=== PATIENT | male | born 1965 | race Caucasian/White ===

== ENCOUNTER 2022-07-24 18:19 | Emergency (ER) | payer MEDICAID ==
[~2022-07-24] VITALS: Ht 180.3 cm; Wt 84.1 kg
[~2022-07-24 18:19] MED LIST: CLIN-97 PO; HYDR-3565 PO; NO HOME MEDS; QUET400T PO; QUET50TA PO
[2022-07-24] MEDS ORDERED: OLANZapine 2.5MG tablet PO STA ×2 (18:54→21:46)
[2022-07-24] MEDS ORDERED: quetiapine 100mg tablet PO STA (19:03)
[2022-07-24 19:07] LABS: BASOPHILS # (AUTO) 0.1 X10'3 (0-0.2); BASOPHILS % (AUTO) 0.8 % (0-1); EOSINOPHILS # (AUTO) 0.1 X10'3 (0-0.9); EOSINOPHILS % (AUTO) 0.8 % (0-6); HEMATOCRIT 49.1 % (42.0-52.0); HEMOGLOBIN 16.2 g/dl (14.0-17.9); LYMPHOCYTES % (AUTO) 9.1 % (21-51); MEAN CORPUSCULAR HGB CONC 33.1 g/dL (33.0-36.5); MEAN CORPUSCULAR VOLUME 90.6 FL (78-98); MEAN PLATELET VOLUME 9.3 FL (7.4-10.4); MONOCYTES # (AUTO) 0.9 X10'3 (0-0.9); MONOCYTES % (AUTO) 8.6 % (2-12); NEUTROPHILS # (AUTO) 8.7 X10'3 (1.8-7.7); NEUTROPHILS % (AUTO) 80.7 % (42-75); PLATELET COUNT 229 X10'3 (140-440); RED BLOOD COUNT 5.42 X10'6 (4.70-6.10); RED CELL DISTRIBUTION WIDTH 13.2 % (11.5-14.5); WHITE BLOOD COUNT 10.7 X10'3 (4.5-11.0)
[2022-07-24 19:21] LABS: ALANINE AMINOTRANSFERASE 27 U/L (12-78); ALBUMIN 4.2 G/DL (3.4-5.0); ALBUMIN/GLOBULIN RATIO 1.2 (1.1-1.5); ALKALINE PHOSPHATASE 74 IU/L (46-116); ANION GAP 16 (8-16); ASPARTATE AMINO TRANSFERASE 20 U/L (10-37); BILIRUBIN,TOTAL 1.2 MG/DL (0.1-1.0); BLOOD UREA NITROGEN 17 MG/DL (7-18); BUN/CREATININE RATIO 14.7 (5.4-32.0); CHLORIDE 100 MMOL/L (99-107); CREATININE 1.16 MG/DL (0.60-1.10); GLUCOSE 112 MG/DL (70-104); POTASSIUM 4.2 MMOL/L (3.5-5.1); SODIUM 138 MMOL/L (135-145); TOTAL CARBON DIOXIDE 22.1 MMOL/L (24-32); TOTAL PROTEIN 7.8 G/DL (6.4-8.2); eGFR 65 ML/MIN
[2022-07-24 19:39] LABS: ETHANOL < 0.010 GM/DL (0.0-0.010)
[2022-07-24] MEDS ORDERED: LOVA20TA2 PO (19:56)
[2022-07-24] MEDS ORDERED: QUET-1 PO (19:56)
--- NOTE | 2022-07-24 19:56 | NUR ---
PT LAYING IN BED RESTING WITH EYES CLOSED
[2022-07-24 20:02] VITALS: BP 135/85
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
[2022-07-24] MEDS ORDERED: hydrOXYzine 25 MG tablet PO ONE (20:50)
[2022-07-24] MEDS ORDERED: LORazepam 2 mg/ml vial IM ONE (21:15)
--- NOTE | 2022-07-24 23:30 | NUR ---
pt laying on bed with eyes closed. breathing even and non labored.
--- NOTE | 2022-07-25 03:33 | NUR ---
pt laying on left side with eyes closed. breathing even and non labored.
--- NOTE | 2022-07-25 06:45 | NUR ---
Assumed care of patient. Pt ambulated independently from main ED to OF bed #25. Pt appears a little restless. Noted patient talking to himself, pt was calm during transfer. Pt was given a warm blanket. Pt states "don't believe what my brother says, he just tries and picks a fight."
[2022-07-25] MEDS ORDERED: atorvastatin 10mg tablet PO SCH (08:00)
[2022-07-25] MEDS ORDERED: QUET-28 PO (08:48)
[2022-07-25] MEDS ORDERED: NAPR-996 PO (08:48)
--- NOTE | 2022-07-25 09:00 | NUR ---
Pt resting comfortably rr even and unlabored.
[2022-07-25 09:09] LABS: CLARITY,URINE CLOUDY (Clear); COLOR,URINE YELLOW (Yellow); GLUCOSE, URINE NEGATIVE (Neg); KETONES,URINE >=80 mg/dl (Neg); LEUKOCYTE ESTERASE ,URINE NEGATIVE (Neg); NITRITES, URINE NEGATIVE (Neg); OCCULT BLOOD,URINE NEGATIVE (Neg); PROTEIN,URINE TRACE mg/dl (Neg); UROBILINOGEN,URINE 0.2 E.U/dL (0.2-1.0)
[2022-07-25 09:17] LABS: UA COLLECTION TYPE NON-SPECIFIED; URINE AMPHETAMINE SCREEN NEGATIVE (Neg); URINE BARBITUATE SCREEN NEGATIVE (Neg); URINE BENZODIAZEPINES SCREEN NEGATIVE (Neg); URINE CANNABINOID SCREEN POSITIVE (Neg); URINE COCAINE SCREEN NEGATIVE (Neg); URINE METHADONE SCREEN NEGATIVE (Neg); URINE OPIATE SCREEN NEGATIVE (Neg); URINE PHENCYCLIDINE SCREEN NEGATIVE (Neg)
[2022-07-25 09:20] LABS: WBC,URINE 0-4 /HPF (0-4)
[2022-07-25 09:21] LABS: BACTERIA,URINE FEW /HPF (Neg); MUCUS STRANDS MANY /LPF (Neg); RBC,URINE 0-2 /HPF (0-2); SQUAMOUS EPITHELIAL CELL,UR FEW /LPF (FEW)
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
[2022-07-25] MEDS: OLANZapine 2.5MG tablet PO SCH ×2 (09:54→20:01)
[2022-07-25] MEDS ORDERED: LORazepam 1 MG tablet PO ONE (10:30)
[2022-07-25] MEDS ORDERED: haloperidol lactate 5mg/ml inj IM ONE (10:30)
--- NOTE | 2022-07-25 10:30 | NUR ---
Noted pt talking very loudly to himself. He was talking about "I can't go back to that place (meaning his home.)" "There are too many rats, I don't like rats." Pt was pulling the covers over his head and throwing himself back on the bed. Pt was diffcult to redirect. Pt was given PO Zyprexa 5 mg at 0955. Received order for PO Ativan 2mg, which pt took without issue. Addendum: 07/25/22 at 1719 by KRYSTIAN Pt perseverated on the rats.
--- NOTE | 2022-07-25 10:41 | NUR ---
Breaking primary SAM Dobbins. Pt with Ativan oral med order and Haldol IM order. Requested ED MD Dr. Zuñiga if Haldol order may be given orally as pt taking oral medication. Haldol order to be held for now and received VO that if pt still having uncontrollable verbal outburst or becomes restless/anxious pt is to receive Haldol 5mg PO. Pt received Ativan 2mg PO and will continue to monitor. Addendum: 07/25/22 at 1719 by KRYSTIAN D/C Haldol order as pt is allergic.
--- NOTE | 2022-07-25 11:30 | NUR ---
Pt is calm and resting comfortably, the combination of Zyperxa 5mg and Ativan 2mg was effective.
--- NOTE | 2022-07-25 12:35 | NUR ---
Pt ate 100% of his lunch.
--- NOTE | 2022-07-25 13:00 | NUR ---
FAXED PACKET TO [facility]
--- NOTE | 2022-07-25 15:13 | NUR ---
Pt resting comfortably, rr even and unlabored. Pt is awaiting placement.
--- NOTE | 2022-07-25 17:17 | NUR ---
NURSE TO NURSE WITH KELLY AT [facility].
--- NOTE | 2022-07-25 17:23 | NUR ---
Pt continues to rest comfortably, rr even and unlabored. No behaviors to report.
--- NOTE | 2022-07-25 17:45 | NUR ---
Cleansed plantar side left foot. Pooped blister. No erythema or drainage noted.
--- NOTE | 2022-07-25 18:16 | NUR ---
Spoke with Jeanne at [facility]. [facility] is still reviewing pt's file.
--- NOTE | 2022-07-25 19:42 | NUR ---
[facility] CALLED AND WILL BE PICKING UP PT. BETWEEN [phone].
[2022-07-25] MEDS ORDERED: quetiapine 100mg tablet PO SCH (21:00)
== END 2022-07-25 20:30 ==
LOC: ER 18:20
DX: F25.9 Schizoaffective disorder, unspecified (principal); Z20.822 Contact with and (suspected) exposure to COVID-19; F29 Unspecified psychosis not due to a substance or known physiological condition; I10 Essential (primary) hypertension; G89.29 Other chronic pain; F32.A Depression, unspecified; F12.90 Cannabis use, unspecified, uncomplicated; Z90.89 Acquired absence of other organs; Z56.0 Unemployment, unspecified; Z88.8 Allergy status to other drugs, medicaments and biological substances; Z88.5 Allergy status to narcotic agent; Z88.6 Allergy status to analgesic agent; Z79.899 Other long term (current) drug therapy
CPT/HCPCS: 36415; 80053; 80305; 80320; 81001; 84443; 85025; 87811; 96372; 99285; J2060; Q0177

== ENCOUNTER 2023-08-15 14:20 | Emergency (ER) | payer MEDICAID ==
[~2023-08-15] VITALS: Ht 177.8 cm; Wt 87.6 kg
[~2023-08-15 14:20] MED LIST changes: -CLIN-97 PO; -HYDR-3565 PO; +LOVA20TA2 PO; +NAPR-996 PO; -NO HOME MEDS; +QUET-1 PO; +QUET-28 PO; -QUET400T PO; -QUET50TA PO
[2023-08-15] MEDS ORDERED: ketorolac trometh inj. 60 MG/2 ML VIAL IM ONE (15:10)
[2023-08-15 15:34] VITALS: BP 137/78; PULSE 84; RESP 16; TEMP 98.2; O2SAT 99
== END 2023-08-15 15:42 | disposition home or self-care (01) ==
LOC: ER 14:21
DX: K43.9 Ventral hernia without obstruction or gangrene (principal); I10 Essential (primary) hypertension; G89.29 Other chronic pain; F32.9 Major depressive disorder, single episode, unspecified; F12.90 Cannabis use, unspecified, uncomplicated; F20.9 Schizophrenia, unspecified; Z90.89 Acquired absence of other organs; Z56.0 Unemployment, unspecified; Z88.5 Allergy status to narcotic agent; Z88.8 Allergy status to other drugs, medicaments and biological substances; Z88.6 Allergy status to analgesic agent; Z79.899 Other long term (current) drug therapy
CPT/HCPCS: 96372; 99283; J1885

== ENCOUNTER 2023-08-15 16:46 | Emergency (ER) | payer MEDICAID ==
--- NOTE | 2023-08-16 11:16 | NUR ---
ATTEMPTED TO CONTACT PATIENT AT HOME NUMBER , BUT LINE IS BUSY AND NOT ACCEPTING CALLS. CELL PHONE IS FOR HIS BROTHER, MALACHI BUI. TC TO MALACHI, WHO STATES THAT ZAHRA SHOULD BE AT HOME. CONTACTED [employer] TO REQUEST A WELFARE CHECK AT PATIENT'S ADDRESS: [address] [place] [address]
--- NOTE | 2023-08-16 11:30 | NUR ---
'S OFFICE CALLED BACK WITH INFORMATION THAT A CONTACT WITH ZAHRA'S BROTHER, MALACHI BUI, WAS MADE AND MALACHI CONFIRMED THAT HIS BROTHER, ZAHRA, WAS AT HOME, TOOK SOME MEDICATION, AND IS DOING BETTER TODAY.
== END 2023-08-15 17:31 | disposition left against medical advice (07) ==
LOC: ER 16:47
DX: Z00.00 Encounter for general adult medical examination without abnormal findings (principal); Z53.21 Procedure and treatment not carried out due to patient leaving prior to being seen by health care provider

== ENCOUNTER 2023-08-17 01:32 | Observation (INO) | payer MEDICAID ==
[~2023-08-17] VITALS: Ht 177.8 cm; Wt 85.0 kg
[2023-08-17] MEDS ORDERED: aspirin 81mg tab.chew PO ONE (01:45)
[2023-08-17] MEDS ORDERED: normal saline 1000ML IV soln IVB ONE (01:45)
[2023-08-17 01:57] LABS: EOSINOPHILS # (AUTO) 0.2 X10'3 (0-0.9); PLATELET COUNT 134 X10'3 (140-440)
[2023-08-17 01:59] LABS: BASOPHILS # (AUTO) 0.1 X10'3 (0-0.2); BASOPHILS % (AUTO) 0.9 % (0-1); EOSINOPHILS % (AUTO) 3.1 % (0-6); HEMATOCRIT 45.9 % (42.0-52.0); LYMPHOCYTES # (AUTO) 1.3 X10'3 (1.1-4.8); LYMPHOCYTES % (AUTO) 22.5 % (21-51); MEAN CORPUSCULAR HEMOGLOBIN 31.5 PG (27.0-31.0); MEAN CORPUSCULAR HGB CONC 34.9 g/dL (33.0-36.5); MEAN PLATELET VOLUME 8.7 FL (7.4-10.4); MONOCYTES # (AUTO) 0.5 X10'3 (0-0.9); MONOCYTES % (AUTO) 7.7 % (2-12); NEUTROPHILS # (AUTO) 3.9 X10'3 (1.8-7.7); NEUTROPHILS % (AUTO) 65.8 % (42-75); RED BLOOD COUNT 5.09 X10'6 (4.70-6.10); WHITE BLOOD COUNT 5.9 X10'3 (4.5-11.0)
[2023-08-17 02:11] LABS: ALANINE AMINOTRANSFERASE 15 U/L (12-78); ALBUMIN 3.9 G/DL (3.4-5.0); ALBUMIN/GLOBULIN RATIO 1.3 (1.1-1.5); ALKALINE PHOSPHATASE 59 IU/L (46-116); ANION GAP 9 (8-16); ASPARTATE AMINO TRANSFERASE 17 U/L (10-37); BILIRUBIN,TOTAL 1.3 MG/DL (0.1-1.0); BLOOD UREA NITROGEN 10 MG/DL (7-18); BUN/CREATININE RATIO 8.8 (10.0-20.0); CALCIUM 8.4 MG/DL (8.5-10.1); CHLORIDE 98 MMOL/L (99-107); CREATININE 1.14 MG/DL (0.60-1.10); GLUCOSE 147 MG/DL (70-104); POTASSIUM 3.4 MMOL/L (3.5-5.1); SODIUM 134 MMOL/L (135-145); TOTAL CARBON DIOXIDE 26.7 MMOL/L (24-32); TOTAL PROTEIN 6.9 G/DL (6.4-8.2); eCRCL 73 ML/MIN; eGFR 66 ML/MIN
[2023-08-17 02:20] LABS: ETHANOL < 10 MG/DL (<10); PRO BRAIN NATRIURETIC PEPTIDE 108 PG/ML (0-125)
[2023-08-17 02:44] VITALS: TEMP 97.7
[2023-08-17] MEDS ORDERED: magnesium oxide 400mg tablet PO ONE (02:45)
[2023-08-17] MEDS ORDERED: potassium Cl 20 mEq SR tablet PO ONE (02:45)
[2023-08-17 03:52] LABS: URINE AMPHETAMINE SCREEN NEGATIVE (Neg); URINE BARBITUATE SCREEN NEGATIVE (Neg); URINE BENZODIAZEPINES SCREEN NEGATIVE (Neg); URINE CANNABINOID SCREEN POSITIVE (Neg); URINE COCAINE SCREEN NEGATIVE (Neg); URINE METHADONE SCREEN NEGATIVE (Neg); URINE OPIATE SCREEN NEGATIVE (Neg); URINE PHENCYCLIDINE SCREEN NEGATIVE (Neg)
[2023-08-17] MEDS ORDERED: MECL-302 PO (03:57)
[2023-08-17] MEDS ORDERED: lisinopril 10 MG tablet PO ONE (04:00)
[2023-08-17] MEDS ORDERED: acetaminophen 325mg tablet PO PRN (04:35)
[2023-08-17] MEDS ORDERED: mag hydrox/Alum hydrox/simeth 30ml oral suspension PO PRN (04:35)
[2023-08-17] MEDS ORDERED: PERFLUTREN PROTEIN-A MICROSPHR (Optison) 0.22 MG/ML 3ML VIAL IV ONE (04:35)
[2023-08-17] MEDS ORDERED: ondansetron/PF 4mg/2ml inj IV PRN (04:35)
[2023-08-17] MEDS ORDERED: magnesium hydroxide 30ml (MOM) UD suspension PO PRN (04:35)
--- NOTE | 2023-08-17 06:31 | NUR ---
ASSUMED CARE. PT RESTING COMFORTABLY. AROUSABLE TO VERBAL STIMULI. RISE AND FALL OF CHEST NOTED.
[2023-08-17] MEDS ORDERED: docusate sod 100mg capsule PO SCH (08:00)
[2023-08-17] MEDS ORDERED: K and/or MAG REPLACEMENT MC SCH (08:00)
[2023-08-17] MEDS ORDERED: heparin, porcine 5000 units/ml vial SQ SCH (08:00)
--- NOTE | 2023-08-17 08:19 | NUR ---
PT POTASSIUM 3.4.DR. ZAFAR NOTIFIED. ORDERS TO NOT REPLACE PER DR ZAFAR.
--- NOTE | 2023-08-17 12:25 | NUR ---
patient in the room awaiting echo.
--- NOTE | 2023-08-17 12:48 | NUR ---
Patient up to the bathroom.
--- NOTE | 2023-08-17 12:54 | NUR ---
patient back in the room.
[2023-08-17 13:10] VITALS: BP 141/94; PULSE 81; RESP 18; O2SAT 97
--- NOTE | 2023-08-17 13:59 | NUR ---
PT AWAITING ECHO. ECHO PAGED.
--- NOTE | 2023-08-17 14:17 | NUR ---
PT LEFT AMA FROM ER BED 5 AT 1417. PT VERBALIZED UNDERSTANDING THAT HE WAS NOT ADVISED TO LEAVE AT THIS TIME. IV DISCONTINUED, CANNULA INTACT. DR. ZAFAR NOTIFIED.
== END 2023-08-17 14:17 | disposition left against medical advice (07) ==
LOC: ER 01:33 → ED HOLD 04:36 → EDBEDREQ 07:05 → EDBEDREQTM 07:05
PROVIDERS: ADMIT Internal Medicine; ATTEND Internal Medicine
DX: I48.0 Paroxysmal atrial fibrillation (principal); F20.9 Schizophrenia, unspecified; I10 Essential (primary) hypertension; F32.A Depression, unspecified; F17.200 Nicotine dependence, unspecified, uncomplicated; F12.90 Cannabis use, unspecified, uncomplicated; Z79.899 Other long term (current) drug therapy
CPT/HCPCS: 36415; 71045; 80053; 80305; 80320; 83735; 83880; 84484; 85025; 93005; 96360; 96372; 99285; G0378; J1644; J7030

== ENCOUNTER 2023-09-16 09:44 | Emergency (ER) | payer MEDICAID ==
[~2023-09-16] VITALS: Ht 177.8 cm; Wt 84.1 kg
[~2023-09-16 09:44] MED LIST changes: +MECL-302 PO
[2023-09-16 11:03] LABS: BASOPHILS # (AUTO) 0.1 X10'3 (0-0.2); BASOPHILS % (AUTO) 0.8 % (0-1); EOSINOPHILS % (AUTO) 0.6 % (0-6); HEMATOCRIT 41.7 % (42.0-52.0); HEMOGLOBIN 14.4 g/dl (14.0-17.9); LYMPHOCYTES # (AUTO) 0.9 X10'3 (1.1-4.8); LYMPHOCYTES % (AUTO) 12.5 % (21-51); MEAN CORPUSCULAR HEMOGLOBIN 30.9 PG (27.0-31.0); MEAN CORPUSCULAR HGB CONC 34.5 g/dL (33.0-36.5); MEAN CORPUSCULAR VOLUME 89.6 FL (78-98); MEAN PLATELET VOLUME 9.9 FL (7.4-10.4); MONOCYTES # (AUTO) 0.7 X10'3 (0-0.9); MONOCYTES % (AUTO) 9.7 % (2-12); NEUTROPHILS # (AUTO) 5.5 X10'3 (1.8-7.7); NEUTROPHILS % (AUTO) 76.4 % (42-75); PLATELET COUNT 154 X10'3 (140-440); RED BLOOD COUNT 4.66 X10'6 (4.70-6.10); RED CELL DISTRIBUTION WIDTH 12.5 % (11.5-14.5); WHITE BLOOD COUNT 7.1 X10'3 (4.5-11.0)
[2023-09-16 11:04] VITALS: BP 163/111; PULSE 95; TEMP 97.7; O2SAT 97
[2023-09-16 11:21] LABS: ALANINE AMINOTRANSFERASE 51 U/L (12-78); ALBUMIN 3.9 G/DL (3.4-5.0); ALBUMIN/GLOBULIN RATIO 1.3 (1.1-1.5); ALKALINE PHOSPHATASE 44 IU/L (46-116); ANION GAP 11 (8-16); ASPARTATE AMINO TRANSFERASE 43 U/L (10-37); BILIRUBIN,TOTAL 1.1 MG/DL (0.1-1.0); BLOOD UREA NITROGEN 13 MG/DL (7-18); CALCIUM 8.9 MG/DL (8.5-10.1); CHLORIDE 101 MMOL/L (99-107); CREATININE 0.93 MG/DL (0.60-1.10); ETHANOL < 10 MG/DL (<10); GLUCOSE 101 MG/DL (70-104); POTASSIUM 4.1 MMOL/L (3.5-5.1); SODIUM 138 MMOL/L (135-145); TOTAL CARBON DIOXIDE 26.4 MMOL/L (24-32); eCRCL 89 ML/MIN; eGFR 83 ML/MIN
[2023-09-16 11:34] LABS: URINE AMPHETAMINE SCREEN NEGATIVE (Neg); URINE BARBITUATE SCREEN NEGATIVE (Neg); URINE BENZODIAZEPINES SCREEN NEGATIVE (Neg); URINE CANNABINOID SCREEN POSITIVE (Neg); URINE COCAINE SCREEN NEGATIVE (Neg); URINE METHADONE SCREEN NEGATIVE (Neg); URINE OPIATE SCREEN NEGATIVE (Neg); URINE PHENCYCLIDINE SCREEN NEGATIVE (Neg)
[2023-09-16 11:43] VITALS: RESP 16
[2023-09-16] MEDS ORDERED: TETanus/Pertussis (Acell)/Diphther VAC/PF (Tdap-Adult) 0.5ml syringe IMVAC ONE (12:15)
[2023-09-16] MEDS ORDERED: RISP2TAB85 PO (18:14)
[2023-09-16] MEDS ORDERED: QUET-1 PO (18:14)
== END 2023-09-16 13:09 | disposition left against medical advice (07) ==
LOC: ER 09:45
DX: F29 Unspecified psychosis not due to a substance or known physiological condition (principal); Z20.822 Contact with and (suspected) exposure to COVID-19
CPT/HCPCS: 36415; 80053; 80305; 80320; 85025; 87811; 99285

== ENCOUNTER 2023-09-16 13:33 | Emergency (ER) | payer MEDICAID ==
[~2023-09-16] VITALS: Ht 177.8 cm; Wt 81.8 kg
[2023-09-16] MEDS ORDERED: diphenhydrAMINE 50 mg/ml inj IM ONE ×2 (13:35→13:50)
[2023-09-16] MEDS ORDERED: OLANZapine **IM** 10 mg inj. IM ONE (13:35)
[2023-09-16] MEDS ORDERED: haloperidol lactate 5mg/ml inj IM ONE (13:50)
[2023-09-16] MEDS ORDERED: LORazepam 2 mg/ml vial IM ONE (13:50)
[2023-09-16] MEDS ORDERED: RISP2TAB85 PO (18:14)
[2023-09-16] MEDS ORDERED: QUET-1 PO (18:14)
[2023-09-16] MEDS ORDERED: quetiapine 100mg tablet PO PRN (18:45)
[2023-09-16] MEDS: risperiDONE 2mg tablet PO SCH (20:00)
[2023-09-16] MEDS ORDERED: QUETIAPINE 50 MG TAB.SR.24H PO SCH (21:00)
[2023-09-17] MEDS ORDERED: ziprasidone IM 20mg inj **IM only IM ONE (04:55)
[2023-09-17] MEDS ORDERED: LORazepam 1 MG tablet PO ONE (05:00)
[2023-09-17] MEDS ORDERED: OLANZapine 5mg rapidly disint. tablet PO ONE (05:00)
[2023-09-17] MEDS: risperiDONE 2mg tablet PO SCH ×2 (08:00→20:00)
[2023-09-17] MEDS ORDERED: quetiapine fumarate ER 300mg tablet PO SCH ×2 (23:23→23:25)
[2023-09-17] MEDS ORDERED: QUETIAPINE 50 MG TAB.SR.24H PO SCH (23:24)
[2023-09-18 05:11] VITALS: BP 117/78; PULSE 75; RESP 16; TEMP 97.7; O2SAT 99
[2023-09-18] MEDS ORDERED: OLAN10TA3 PO (17:27)
== END 2023-09-18 08:26 | disposition left against medical advice (07) ==
LOC: ER 13:33
DX: F23 Brief psychotic disorder (principal); R45.850 Homicidal ideations; I10 Essential (primary) hypertension; G89.29 Other chronic pain; F32.A Depression, unspecified; Z56.0 Unemployment, unspecified; Z79.899 Other long term (current) drug therapy; Z88.8 Allergy status to other drugs, medicaments and biological substances
CPT/HCPCS: 96372; 99285; J1200; J2060; J3490

== ENCOUNTER 2023-09-18 14:11 | Emergency (ER) | payer MEDICAID ==
[~2023-09-18] VITALS: Ht 177.8 cm; Wt 81.8 kg
[~2023-09-18 14:11] MED LIST changes: -LOVA20TA2 PO; -MECL-302 PO; -NAPR-996 PO; +RISP2TAB85 PO
[2023-09-18 15:00] LABS: BASOPHILS # (AUTO) 0.1 X10'3 (0-0.2); BASOPHILS % (AUTO) 1.3 % (0-1); EOSINOPHILS # (AUTO) 0.2 X10'3 (0-0.9); EOSINOPHILS % (AUTO) 2.4 % (0-6); HEMATOCRIT 43.2 % (42.0-52.0); HEMOGLOBIN 14.7 g/dl (14.0-17.9); LYMPHOCYTES % (AUTO) 15.6 % (21-51); MEAN CORPUSCULAR HEMOGLOBIN 30.6 PG (27.0-31.0); MEAN CORPUSCULAR VOLUME 89.9 FL (78-98); MEAN PLATELET VOLUME 9.2 FL (7.4-10.4); MONOCYTES # (AUTO) 0.5 X10'3 (0-0.9); MONOCYTES % (AUTO) 8.2 % (2-12); NEUTROPHILS # (AUTO) 4.6 X10'3 (1.8-7.7); NEUTROPHILS % (AUTO) 72.5 % (42-75); PLATELET COUNT 174 X10'3 (140-440); RED BLOOD COUNT 4.81 X10'6 (4.70-6.10); RED CELL DISTRIBUTION WIDTH 12.6 % (11.5-14.5); WHITE BLOOD COUNT 6.3 X10'3 (4.5-11.0)
[2023-09-18 15:27] LABS: ALANINE AMINOTRANSFERASE 41 U/L (12-78); ALBUMIN 3.4 G/DL (3.4-5.0); ALBUMIN/GLOBULIN RATIO 1.1 (1.1-1.5); ALKALINE PHOSPHATASE 47 IU/L (46-116); ANION GAP 9 (8-16); ASPARTATE AMINO TRANSFERASE 39 U/L (10-37); BILIRUBIN,TOTAL 0.9 MG/DL (0.1-1.0); BLOOD UREA NITROGEN 16 MG/DL (7-18); BUN/CREATININE RATIO 16.2 (10.0-20.0); CALCIUM 8.6 MG/DL (8.5-10.1); CHLORIDE 102 MMOL/L (99-107); CREATININE 0.99 MG/DL (0.60-1.10); ETHANOL < 10 MG/DL (<10); GLUCOSE 121 MG/DL (70-104); POTASSIUM 3.4 MMOL/L (3.5-5.1); SODIUM 141 MMOL/L (135-145); TOTAL PROTEIN 6.6 G/DL (6.4-8.2); eCRCL 84 ML/MIN; eGFR 78 ML/MIN
[2023-09-18 16:57] LABS: URINE AMPHETAMINE SCREEN NEGATIVE (Neg); URINE BARBITUATE SCREEN NEGATIVE (Neg); URINE BENZODIAZEPINES SCREEN NEGATIVE (Neg); URINE CANNABINOID SCREEN POSITIVE (Neg); URINE COCAINE SCREEN NEGATIVE (Neg); URINE METHADONE SCREEN NEGATIVE (Neg); URINE OPIATE SCREEN NEGATIVE (Neg); URINE PHENCYCLIDINE SCREEN NEGATIVE (Neg)
[2023-09-18] MEDS ORDERED: OLAN10TA3 PO (17:27)
[2023-09-18] MEDS: olanzapine 10mg tablet PO SCH (19:40)
[2023-09-19] MEDS: olanzapine 10mg tablet PO SCH ×2 (07:01→20:48)
[2023-09-19] MEDS ORDERED: ziprasidone IM 20mg inj **IM only IM ONE (10:45)
[2023-09-20] MEDS ORDERED: LORazepam 1 MG tablet PO ONE (00:10)
[2023-09-20] MEDS ORDERED: LORazepam 1 MG tablet ONE (00:35)
[2023-09-20 06:00] VITALS: BP 143/80; PULSE 87; RESP 16; TEMP 97.5; O2SAT 99
== END 2023-09-20 07:00 | disposition still patient (30) ==
LOC: ER 14:12
DX: F29 Unspecified psychosis not due to a substance or known physiological condition (principal); Z20.822 Contact with and (suspected) exposure to COVID-19; G89.29 Other chronic pain; M54.9 Dorsalgia, unspecified; F32.A Depression, unspecified; F20.9 Schizophrenia, unspecified; I10 Essential (primary) hypertension
CPT/HCPCS: 36415; 80053; 80305; 80320; 85025; 87811; 96372; 99285; J3486

== ENCOUNTER 2023-09-30 10:28 | Emergency (ER) | payer MEDICAID ==
[~2023-09-30] VITALS: Ht 188 cm; Wt 79.1 kg
[~2023-09-30 10:28] MED LIST changes: +OLAN10TA3 PO; -QUET-1 PO; -QUET-28 PO; -RISP2TAB85 PO
[2023-09-30 11:13] VITALS: TEMP 97.9
[2023-09-30 12:31] VITALS: BP 120/81; PULSE 84; RESP 18; O2SAT 97
== END 2023-09-30 18:10 | disposition left against medical advice (07) ==
LOC: ER 10:28
DX: M54.2 Cervicalgia (principal); Z53.21 Procedure and treatment not carried out due to patient leaving prior to being seen by health care provider
CPT/HCPCS: 93005; 99281

== ENCOUNTER 2023-10-08 12:20 | Emergency (ER) | payer MEDICAID | END 2023-10-08 13:40 | disposition left against medical advice (07) | LOC: ER 12:20 | DX: S91.119A Laceration without foreign body of unspecified toe without damage to nail, initial encounter (principal); Z53.21 Procedure and treatment not carried out due to patient leaving prior to being seen by health care provider; X58.XXXA Exposure to other specified factors, initial encounter; Y93.89 Activity, other specified; Y92.89 Other specified places as the place of occurrence of the external cause; Y99.8 Other external cause status ==

== ENCOUNTER 2024-05-10 00:52 | Emergency (ER) | payer MEDICAID ==
[~2024-05-10] VITALS: Ht 177.8 cm; Wt 89.9 kg
[2024-05-10 00:58] VITALS: BP 121/78; PULSE 94; RESP 16; TEMP 98.1; O2SAT 97
[2024-05-10] MEDS ORDERED: OLAN15TA35 PO (01:00)
[2024-05-10] MEDS ORDERED: PALI117D IM (01:00)
[2024-05-10 03:48] LABS: URINE AMPHETAMINE SCREEN NEGATIVE (Neg); URINE BARBITUATE SCREEN NEGATIVE (Neg); URINE BENZODIAZEPINES SCREEN NEGATIVE (Neg); URINE CANNABINOID SCREEN POSITIVE (Neg); URINE COCAINE SCREEN NEGATIVE (Neg); URINE METHADONE SCREEN NEGATIVE (Neg); URINE OPIATE SCREEN NEGATIVE (Neg); URINE PHENCYCLIDINE SCREEN NEGATIVE (Neg)
[2024-05-10] MEDS: naproxen 500mg tablet PO ONE (06:28)
== END 2024-05-10 06:29 | disposition home or self-care (01) ==
LOC: ER 00:53
DX: R51.9 Headache, unspecified (principal); G47.00 Insomnia, unspecified; R11.0 Nausea; I10 Essential (primary) hypertension; F32.A Depression, unspecified; F12.90 Cannabis use, unspecified, uncomplicated; Z88.5 Allergy status to narcotic agent; Z79.899 Other long term (current) drug therapy; Z98.890 Other specified postprocedural states
CPT/HCPCS: 80305; 99283